=== PATIENT | male | born 1980 | race Hispanic/Latino ===

== ENCOUNTER → 2020-03-28 | Outpatient (CLI) | payer BC ==
--- NOTE | 2020-03-28 10:11 | Diagnostic Imaging Report ---
Left knee MRI without contrast. History: Knee pain. Decreased range of motion. Pain not responding to conservative management. Comparison: None. Technique: Multiplanar multi-sequence MRI of the knee without contrast. Findings: Medial compartment: No meniscal tear or MCL tear. Mild articular cartilage fraying and fissuring. Lateral compartment: No meniscal tear. Mild articular cartilage fraying and fissuring. The LCL complex is normal. Intercondylar notch: The ACL and PCL are intact. Patellofemoral compartment: Articular cartilage fraying and deep fissuring most pronounced at the median ridge of the patella with mild bone marrow edema. Extensor mechanism: The quadriceps and patellar tendons are normal. Other findings: There is a joint effusion and synovitis. There is no acute fracture, subluxation or avascular necrosis. The ventricles veins. Lobulated septated Castro's cyst projecting superiorly measuring approximately 4.5 cm. 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 Joint effusion, synovitis, varicose veins and lobulated septated Castro's cyst. Signed by: Dr. Brandon Rasmussen M.D. on 03/28/2020 10:08 AM
== END ==
LOC: MRI 07:27
PROVIDERS: ATTEND Specialist
DX: S83.242A Other tear of medial meniscus, current injury, left knee, initial encounter (principal)